=== PATIENT | female | born 1990 | race Caucasian/White ===

== ENCOUNTER → 2019-01-09 | Outpatient (REF) | LOC: M LAB LCGH 10:28 | PROVIDERS: ATTEND Nurse Practitioner Adult Health | DX: N64.52 Nipple discharge (principal) ==

== ENCOUNTER → 2025-06-28 | Outpatient (REF) | payer OTHER | LOC: M PLALAB 13:32 | PROVIDERS: ATTEND Obstetrics & Gynecology | DX: Z32.02 Encounter for pregnancy test, result negative (principal) ==

== ENCOUNTER → 2025-06-28 | Outpatient (CLI) | payer OTHER ==
[2025-06-28 18:49] LABS: PLATELET COUNT, AUTOMATED 295 10^3/uL (150-450)
[2025-06-28 19:12] LABS: FREE T4 1.5 NG/DL (0.89-1.76)
[2025-06-28 19:23] LABS: ESTIMATED AVERAGE GLUCOSE 103.0 MG/DL (60-110)
== END ==
LOC: M PLALAB 13:34
PROVIDERS: ATTEND Obstetrics & Gynecology
DX: Z32.02 Encounter for pregnancy test, result negative (principal)

== ENCOUNTER 2025-08-09 16:26 | Emergency (ER) | payer OTHER ==
[~2025-08-09] VITALS: Ht 172.7 cm; Wt 87.1 kg
[2025-08-09 17:42] LABS: KETONE, URINE AUTO RFX 1+ mg/dL (NEGATIVE); LEUKOCYTE ESTERASE UR AUTO RFX NEGATIVE (NEGATIVE); MUCUS, URINE RFX LARGE (NEGATIVE); NITRITE, URINE AUTO RFX NEGATIVE (NEGATIVE); RBC, URINE AUTO RFX 0 /HPF (0-3); SQUAM EPITHELIAL CELL UR AURFX 7 /HPF (0-6); WBC, URINE AUTO RFX 0 /HPF (0-3)
[2025-08-09 18:07] LABS: ALT/SGPT 22 U/L (7.0-40); AST/SGOT 18 U/L (<34); CALCIUM LEVEL 9.5 MG/DL (8.5-10.1); CARBON DIOXIDE LEVEL 24 MMOL/L (20-31); CHLORIDE LEVEL 104 MMOL/L (98-107); CREATININE FOR GFR 1.04 MG/DL (0.55-1.30); GLOMERULAR FILTRATION RATE 71.9 (>60); POTASSIUM SERUM 3.7 MMOL/L (3.5-5.1); SODIUM LEVEL 138 MMOL/L (136-145)
[2025-08-09 18:19] LABS: HCG, SERUM QUALITATIVE NEGATIVE (NEGATIVE)
[2025-08-09 18:39] LABS: BASO # 0.1 10^3/uL (0.0-0.2); BASO % 0.5 % (0.0-1.0); EOS # 0.3 10^3/uL (0.0-0.5); EOS % 2.0 % (0.0-3.0); LYMPH # 3.3 10^3/uL (1.5-5.0); LYMPH % 24.2 % (24.0-44.0); MONO # 1.0 10^3/uL (0.0-0.8); MONO % 7.5 % (2.0-8.0); NEUTROPHILS # 9.0 10^3/uL (1.5-8.5); NEUTROPHILS % 65.5 % (36.0-66.0); PLATELET COUNT, AUTOMATED 315 10^3/uL (150-450)
[2025-08-09] MEDS ORDERED: BUPR150T12 PO (22:08)
[2025-08-09] MEDS ORDERED: VITA100T28 PO (22:08)
[2025-08-09] MEDS ORDERED: LEVO112T2 PO (22:08)
[2025-08-09] MEDS ORDERED: DOCU100C16 PO (22:08)
[2025-08-09] MEDS ORDERED: HYDR-3364 PO (22:08)
[2025-08-09] MEDS ORDERED: FERR325T19 PO (22:08)
[2025-08-09] MEDS ORDERED: METO1TAB32 PO (22:08)
[2025-08-09] MEDS ORDERED: FOLI1TAB11 PO (22:08)
[2025-08-09] MEDS ORDERED: ISOVUE-370 76% 100 ML VIAL As Ordered ONE (23:05)
[2025-08-09] MEDS: NS (Normal Saline) 0.9% 1,000 ML IV ONE (23:32)
[2025-08-09] MEDS: ONDANSETRON 4MG/2ML VIAL IV ONE (23:32)
[2025-08-10] MEDS ORDERED: ONDA-282 PO (03:20)
[2025-08-10] MEDS ORDERED: CIPR-249 PO (03:38)
[2025-08-10 03:48] VITALS: BP 111/78; TEMP 97.2; O2SAT 98
== END 2025-08-10 03:49 | disposition home or self-care (01) ==
LOC: M ED 16:26
DX: A08.4 Viral intestinal infection, unspecified (principal); I10 Essential (primary) hypertension; E07.9 Disorder of thyroid, unspecified; F32.A Depression, unspecified; D64.9 Anemia, unspecified; F17.200 Nicotine dependence, unspecified, uncomplicated; Z79.899 Other long term (current) drug therapy; Z88.0 Allergy status to penicillin
CPT/HCPCS: 74177; 80048; 80076; 81001; 83690; 84703; 85025; 96361; 96374; 99284; J2405; Q9967